=== PATIENT | male | born 1980 | race Caucasian/White ===

== ENCOUNTER 2016-06-21 23:27 | Emergency (ER) | payer MEDICAID, OTHER, SELFPAY ==
[~2016-06-21] VITALS: Ht 177.8 cm; Wt 78.8 kg
[2016-06-22] MEDS ORDERED: LIDOCAINE 1%, 20ML SQ ONE (01:00)
[2016-06-22] MEDS ORDERED: DIPH,PERTUSS(ACELL),TET VAC/PF 0.5 ML IM-VACC ONE ×2 (01:00)
[2016-06-22] MEDS ORDERED: LIDOCAINE 1%, 20ML ONE (01:00)
[2016-06-22 02:52] VITALS: BP 100/59
[2016-06-22] MEDS ORDERED: BACITRACIN ZINC OINT 500U/GM, 0.9 GM ONE (03:03)
== END 2016-06-22 02:54 | disposition home or self-care (01) ==
LOC: ED 06-22 02:48
DX: S60.221A Contusion of right hand, initial encounter (principal); S91.114A Laceration without foreign body of right lesser toe(s) without damage to nail, initial encounter; V27.4XXA Motorcycle driver injured in collision with fixed or stationary object in traffic accident, initial encounter; Y93.89 Activity, other specified; Y92.89 Other specified places as the place of occurrence of the external cause; Y99.8 Other external cause status
CPT/HCPCS: 12002; 90471; 90715